=== PATIENT | female | born 1970 | race Caucasian/White ===

== ENCOUNTER 2020-06-06 07:12 | Day surgery (SDC) | payer MEDICAID ==
[~2020-06-06 07:12] MED LIST: Midazolam 1 MG/ML 2 ML SDV ONE; Propofol 200 MG/20 ML SDV ONE; Sodium Chloride 0.9% 1,000 ML IV SCH; fentaNYL 100 MCG/2 ML SDV ONE
[2020-06-06] MEDS ORDERED: Propofol 200 MG/20 ML SDV ONE (09:19)
--- NOTE | 2020-06-07 10:48 | OR ---
DATE OF PROCEDURE: 06/06/2020 SURGEON: Pete Francois MD PROCEDURE: Colonoscopy. FINDINGS: Sigmoid colon polyp, approximately 5 mm, completely removed using cold biopsy forceps. COMPLICATIONS: None. 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 PREOPERATIVE DIAGNOSIS: Positive Cologuard. POSTOPERATIVE DIAGNOSIS: Positive Cologuard. RISKS: Risks, benefits, alternatives, and limitations including, but not limited to infection, bleeding, perforation, false positives and false negatives were explained to the patient and she wished to proceed. PROCEDURE IN DETAIL: The patient was placed in left lateral decubitus position. Digital rectal exam was performed without abnormality. Scope was introduced and advanced atraumatically to the ileocecal valve. A photo was taken of this. Scope was brought back to the ascending, transverse, descending colon, and retroflexed. The aforementioned polyp was identified and completely removed. No diverticulosis. No old or new blood. No abnormalities on retroflexion. The prep was acceptable, approximately 90% of the luminal surface could be seen. Greater than 12 minutes was spent removing the scope. The patient tolerated the procedure well. Pete Francois MD /[id number]
== END 2020-06-06 10:50 | disposition home or self-care (01) ==
LOC: JP.SDS 07:12
PROVIDERS: ATTEND Surgery
DX: K63.5 Polyp of colon (principal); Z01.812 Encounter for preprocedural laboratory examination; Z20.822 Contact with and (suspected) exposure to COVID-19
CPT/HCPCS: 45380; 88305; J2250; J2704; J3010; J7030

== ENCOUNTER 2021-03-28 13:33 | Emergency (ER) | payer MEDICAID | END 2021-03-28 16:36 | disposition home or self-care (01) | LOC: JP.ED 13:33 | DX: U07.1 COVID-19 (principal) | CPT/HCPCS: 36415; 71045; 71045-26; 80053; 83615; 85025; 85379; 99283-25 ==

== ENCOUNTER 2022-07-12 11:17 | Emergency (ER) | payer MEDICAID | END 2022-07-12 13:01 | disposition home or self-care (01) | LOC: JP.ED 11:17 | DX: J02.9 Acute pharyngitis, unspecified (principal); Z86.16 Personal history of COVID-19; Z20.822 Contact with and (suspected) exposure to COVID-19 | CPT/HCPCS: 87081; 87880-QW; 99283; U0002 ==